=== PATIENT | male | born 1995 | race African-American/Black ===

== ENCOUNTER 2021-05-01 15:40 | Emergency (ER) | payer OTHER ==
[~2021-05-01] VITALS: Ht 188 cm; Wt 83.0 kg
[2021-05-01] MEDS ORDERED: IBUPROFEN 400MG TABLET PO ONE (19:00)
[2021-05-01] MEDS ORDERED: ACETAMINOPHEN 325MG TABLET PO ONE (19:00)
[2021-05-01 19:11] VITALS: BP 125/77
== END 2021-05-01 19:30 | disposition home or self-care (01) ==
LOC: ER 15:40
DX: M25.561 Pain in right knee (principal); Y93.67 Activity, basketball; Y92.89 Other specified places as the place of occurrence of the external cause; Y99.8 Other external cause status
CPT/HCPCS: 73562; 73610; 99284